=== PATIENT | male | born 1990 | race Caucasian/White ===

== ENCOUNTER 2016-06-27 21:54 | Emergency (ER) | payer OTHER | END 2016-06-27 23:17 | disposition home or self-care (01) | LOC: ER 21:54 | DX: S00.83XD Contusion of other part of head, subsequent encounter (principal); V86.99XD Unspecified occupant of other special all-terrain or other off-road motor vehicle injured in nontraffic accident, subsequent encounter | CPT/HCPCS: 99282 ==